=== PATIENT | female | born 1940 | race Caucasian/White ===

== ENCOUNTER 2016-08-01 10:41 | Emergency (ER) | payer MEDICARE ==
[~2016-08-01] VITALS: Ht 160 cm; Wt 79.0 kg
[~2016-08-01 10:41] MED LIST: ASPI81 PO; CLOR1TAB23 PO; GLUCTAB PO; LISI10TA PO; MONT10TA2 PO; TOPR50TA PO
[2016-08-01 10:46] VITALS: BP 129/78; PULSE 69; RESP 18; TEMP 99.8; O2SAT 94
[2016-08-01] MEDS ORDERED: METO50TA11 PO (10:55)
[2016-08-01] MEDS ORDERED: MONT10TA2 PO (10:55)
[2016-08-01] MEDS ORDERED: LISI10TA3 PO (10:55)
[2016-08-01] MEDS ORDERED: METF500T4 PO (10:55)
--- NOTE | 2016-08-01 11:02 | PD ---
HPI Chief Complaint: Pain: Acute or Chronic Time Seen by Provider: 11:01 Travel History International Travel<30 days: No Contact w/Intl Traveler<30days: No Traveled to known affect area: No History of Present Illness HPI 75 year old female with PMH of DM, HTN and OA presents to the ED for evaluation of 3 week history of 4/10 left posterior leg pain. Gradual onset. No alleviating or exacerbating factors reported. Patient can not recall any acute trauma or previous injury. Denies history of smoking, recent period of inactivity. Denies numbness, tingling, weakness, limitations to ROM. She's been treating at home with 600-800 mg of ibuprofen with no improvement of symptoms. Patient lives primarily in [place]. [facility] Past Medical History Heart Rhythm Problems: Yes (SVT) Diabetes: Yes Patient Takes Glucophage: Yes Hypertension: Yes Past Surgical History Cholecystectomy: Yes Joint Replacement: Yes (BILATERAL HIP) Other Surgery: Yes (CARPAL TUNNEL 05/2016) Social History Alcohol Use: Yes (2 x's WEEK) Tobacco Use: No Substance Use: No Allergies-Medications (Allergen,Severity, Reaction): Coded Allergies: Penicillin (Verified Allergy, Intermediate, Hypotension, 06/30/09) Reported Meds & Prescriptions Reported Meds & Active Scripts Active Reported Singulair (Montelukast Sodium) 10 Mg Tab 10 Mg PO HS Metoprolol Succinate ER 24 HR (Metoprolol Succinate) 50 Mg Tab 50 Mg PO DAILY Lisinopril 10 Mg Tab 10 Mg PO DAILY Metformin ER (Metformin HCl) 500 Mg Milly 500 Mg PO DAILY With evening meal Review of Systems Except as stated in HPI: all other systems reviewed are Neg Physical Exam Narrative GENERAL: Well-nourished, well-developed nontoxic appearing white female in no acute distress. SKIN: Focused skin assessment warm/dry. HEAD: Normocephalic. EYES: No scleral icterus. No injection or drainage. NECK: Supple, trachea midline. No JVD or lymphadenopathy. CARDIOVASCULAR: Regular rate and rhythm without murmurs, gallops, or rubs. RESPIRATORY: Breath sounds equal bilaterally. No accessory muscle use. GASTROINTESTINAL: Abdomen soft, non-tender, nondistended. MUSCULOSKELETAL: No cyanosis, or edema. FOCUSED LEFT LOWER EXTREMITY EXAM: 2+ DP pulse. No popliteal masses. TTP of the lateral aspect of the popliteal fossa. Patient is able to flex beyond 90 and extend to 0. No patellar balloting or tenderness to palpation of the joint lines. Varus/valgus testing negative. Negative anterior drawer testing. Sensation intact to light touch distally. BACK: Nontender without obvious deformity. No CVA tenderness. Data Data Last Documented VS Vital Signs Date Time Temp Pulse Resp B/P Pulse Ox O2 Delivery O2 Flow Rate FiO2 08/01/16 10:46 99.8 69 18 129/78 94 Orders Us Leg Venous Doppler (08/01/16 11:06) Knee, Complete (4vws) (08/01/16 11:06) ^ Domingo Bandage (08/01/16 12:23) MDM Medical Decision Making Medical Screen Exam Complete: Yes Emergency Medical Condition: Yes Differential Diagnosis Musculoskeletal pain versus ligamentous injury versus early exacerbation versus Garza cyst versus DVT versus other Narrative Course 75 year old female with PMH of DM, HTN and OA presents to the ED for evaluation of 3 week history of 4/10 left posterior leg pain. Gradual onset. No alleviating or exacerbating factors reported. Patient can not recall any acute trauma or previous injury. Denies history of smoking, recent period of inactivity. She's been treating at home with 600-800 mg of ibuprofen with no improvement of symptoms. Vitals reviewed. Physical exam reveals a nontoxic- appearing white female in no acute distress. Focused left lower extremity exam reveals a 2+ DP pulse. No popliteal masses. Tender to palpation of the lateral aspect of the popliteal fossa. No patellar balloting or joint line tenderness. Patient is able to flex beyond 90 and extend to 0. Varus/valgus and anterior drawer testing negative. Neurovascularly intact. Xrays reveal possible small prepatellar effusion, no acute bony findings. US negative for DVT. I suspect this is an exacerbation of OA. The knee was wrapped in an Domingo bandage. The patient was instructed to continue with antiinflammatories, rest, ice, elevate the extremity, follow up with her orthopedist upon return to [place] later this month. She indicated understanding of the instructions and is agreeable to the plan. She is stable and discharged home. Diagnosis Primary Impression: Left knee pain Qualified Code: M25.562 - Acute pain of left knee Referrals: Orthopedist Patient Instructions: General Instructions, Knee Pain (ED) Additional Instructions: Rest, ice, elevate the extremity. Apply ice no longer than 10-15 minutes per hour a few times a day. 800 mg ibuprofen up to 3 times a day as needed for pain and inflammation. Alternately you may take 500mg Naproxen (Aleve) every 12 hours for pain and inflammation Return to normal, gentle activity as tolerated. No running, jumping activities for the next few weeks. Wear the DOMINGO wrap for support as needed. Follow up with orthopedist or your primary care provider. Return to the ED for any urgent or emergent medical condition. Disposition: 01 DISCHARGE HOME Condition: Stable Deborah Carmona Aug 01, 2016 11:02
--- NOTE | 2016-08-01 11:35 | RADHPO ---
EXAM DATE/TIME: 08/01/2016 11:15 [facility] COMPARISON: No previous studies available for comparison. INDICATIONS : Left posterior knee pain with no known injury x 1 week. MEDICAL HISTORY : Hypertension. Diabetic. Irregular heart beat-SVT. SURGICAL HISTORY : Cholecystectomy. Carpal tunnel syndrome. Bilateral hip replacements ENCOUNTER: Initial ACUITY: 1 week PAIN SCORE: 5/10 LOCATION: Left posterior knee FINDINGS: There appears to be small suprapatellar effusion. No evidence of fracture, dislocation or bony destru ction. No significant arthritic changes are appreciated. CONCLUSION: Possible small effusion. No acute bony findings Tomy Browne MD on August 01, 2016 at 11:30 Board Certified Radiologist. This report was verified electronically.
--- NOTE | 2016-08-01 12:08 | RADHPO ---
EXAM DATE/TIME: 08/01/2016 11:27 [facility] COMPARISON: No previous studies available for comparison. INDICATIONS : Left knee pain. MEDICAL HISTORY : Hypertension. Diabetes. SURGICAL HISTORY : Cholecystectomy. Bilateral hip replacement. Carpal tunnel release. ENCOUNTER: Initial ACUITY: 1 week PAIN SCORE: 3/10 LOCATION: Left leg. TECHNIQUE: Venous ultrasound of the leg was performed from the inguinal ligament to the proximal calf. Real-belia e, color Doppler and spectral tracing, compression and augmentation techniques were used. FINDINGS: There is normal compressibility of the deep venous system from the inguinal region to the proximal ca lf. No echogenic clot is seen in the lumen of the common femoral, femoral, popliteal, and posterior tibial veins. There is a normal response of the venous system to proximal and distal augmentation an d respiration. CONCLUSION: Normal examination. Tomy Browne MD on August 01, 2016 at 12:06 Board Certified Radiologist. This report was verified electronically.
== END 2016-08-01 12:45 | disposition home or self-care (01) ==
LOC: PHEFT 10:41
DX: M25.562 Pain in left knee (principal); E11.9 Type 2 diabetes mellitus without complications; I10 Essential (primary) hypertension
CPT/HCPCS: 73564; 93971